=== PATIENT | male | born 1990 | race Caucasian/White ===

== ENCOUNTER 2018-12-11 19:03 | Emergency (ER) | payer SELFPAY ==
[~2018-12-11] VITALS: Ht 175.3 cm; Wt 107.3 kg
[2018-12-11 19:09] VITALS: Ht 175.3 cm; Wt 107.3 kg
[2018-12-11] MEDS ORDERED: TORADOL10 MG PO (20:10)
[2018-12-11 20:18] VITALS: BP 122/81
== END 2018-12-11 20:25 | disposition home or self-care (01) ==
LOC: D.ER 19:03
DX: S60.221A Contusion of right hand, initial encounter (principal); W23.0XXA Caught, crushed, jammed, or pinched between moving objects, initial encounter; Y93.89 Activity, other specified; Y92.89 Other specified places as the place of occurrence of the external cause

== ENCOUNTER 2019-01-01 21:11 | Emergency (ER) | payer SELFPAY ==
[~2019-01-01] VITALS: Ht 175.3 cm; Wt 106.8 kg
[~2019-01-01 21:11] MED LIST: TORADOL10 MG PO
[2019-01-01 21:36] VITALS: Ht 175.3 cm; Wt 106.8 kg
[2019-01-02] MEDS ORDERED: BUTALB-APAP-CA1 EACH PO (01:58)
[2019-01-02 02:17] VITALS: BP 124/73
== END 2019-01-02 02:17 | disposition home or self-care (01) ==
LOC: D.ER 21:11
DX: R51 Headache (principal)

== ENCOUNTER 2019-01-23 18:50 | Emergency (ER) | payer SELFPAY ==
[~2019-01-23] VITALS: Ht 175.3 cm; Wt 104.5 kg
[~2019-01-23 18:50] MED LIST changes: +BUTALB-APAP-CA1 EACH PO
[2019-01-23 18:58] VITALS: Ht 175.3 cm; Wt 104.5 kg
[2019-01-23] MEDS ORDERED: VISTARIL25 MG PO (19:55)
[2019-01-23] MEDS ORDERED: ZPAK PO (19:56)
[2019-01-23 20:54] VITALS: BP 131/89
== END 2019-01-23 20:54 | disposition home or self-care (01) ==
LOC: D.ER 18:50
DX: F41.0 Panic disorder [episodic paroxysmal anxiety] (principal); J02.9 Acute pharyngitis, unspecified

== ENCOUNTER 2019-03-14 18:41 | Emergency (ER) | payer MEDICAID ==
[~2019-03-14] VITALS: Ht 175.3 cm; Wt 104.5 kg
[~2019-03-14 18:41] MED LIST changes: +VISTARIL25 MG PO; +ZPAK PO
[2019-03-14 18:43] VITALS: Ht 175.3 cm; Wt 104.5 kg
[2019-03-14] MEDS ORDERED: VISTARIL25 MG PO (20:23)
[2019-03-14 21:08] VITALS: BP 119/77
== END 2019-03-14 21:08 | disposition home or self-care (01) ==
LOC: D.ER 18:41
DX: F41.9 Anxiety disorder, unspecified (principal)

== ENCOUNTER 2019-11-10 14:35 | Emergency (ER) | payer SELFPAY ==
[~2019-11-10] VITALS: Ht 175.3 cm; Wt 100.0 kg
[2019-11-10 14:47] VITALS: Ht 175.3 cm; Wt 100.0 kg
[2019-11-10] MEDS ORDERED: OMEPRAZOLE20 M1 PO (14:50)
[2019-11-10] MEDS ORDERED: LISINOPRIL20 MG PO (14:50)
[2019-11-10 15:05] LABS: BASOPHILS 0.2 % (0-2); HEMATOCRIT 43.1 % (42.0-54.0); HEMOGLOBIN 14.5 g/dL (13.5-17.5); IMMATURE GRANULOCYTES 0.2 % (0-5); LYMPHOCYTES 40.2 % (15-50); MCH 31.7 pg (26.0-34.0); MCHC 33.6 g/dL (31.0-37.0); MCV 94.3 fL (80.0-100.0); MEAN PLATELET VOLUME 9.5 fL (7.4-10.4); MONOCYTES 9.2 % (2-11); NEUTROPHILS 49.2 % (40-80); PLATELET COUNT 250 10x3/uL (130-400); RBC 4.57 10x6/uL (4.20-6.10); RDW 13.2 % (11.5-14.5); WBC 5.8 10x3/uL (4.8-10.8)
[2019-11-10 15:17] LABS: APTT 29.7 SECONDS (22.8-39.4); INR 0.99 (0.85-1.17)
[2019-11-10 15:24] LABS: CALC OSMOLALITY 276 mosm/kg (275-300); CALCIUM 8.8 mg/dL (8.5-10.1); CARBON DIOXIDE 28.3 mmol/L (21.0-32.0); CHLORIDE - SERUM 102 mmol/L (98-107); CREATININE - SERUM 0.9 mg/dL (0.6-1.3); GLUCOSE 95 mg/dL (74-106); POTASSIUM - SERUM 3.7 mmol/L (3.5-5.1); SODIUM 138 mmol/L (136-145); UREA NITROGEN 15 mg/dL (7-18); eGFR NON AFRICAN AMERICAN > 90 mL/min (90-120)
[2019-11-10 15:38] LABS: ALBUMIN 4.4 g/dL (3.4-5.0); ALKALINE PHOSPHATASE 64 U/L (30-120); ALT (SGPT) 28 U/L (10-68); BILIRUBIN - TOTAL 0.53 mg/dL (0.2-1.3); CKMB 1.3 U/L (0.0-3.6); CREATINE KINASE 236 UL (21-232); MAGNESIUM - SERUM 1.9 mg/dL (1.8-2.4); PROTEIN - SERUM 7.8 g/dL (6.4-8.2); TROPONIN-I < 0.017 ng/mL (0.000-0.060)
[2019-11-10] MEDS ORDERED: ATIVAN0.5 MG PO (16:05)
[2019-11-10 16:35] VITALS: BP 125/80
== END 2019-11-10 16:35 | disposition home or self-care (01) ==
LOC: D.ER 14:35
PROVIDERS: Emergency Medicine
DX: R07.89 Other chest pain (principal); R06.02 Shortness of breath; I10 Essential (primary) hypertension; K21.9 Gastro-esophageal reflux disease without esophagitis

== ENCOUNTER 2020-04-25 19:28 | Emergency (ER) | payer SELFPAY ==
[~2020-04-25] VITALS: Ht 175.3 cm; Wt 93.2 kg
[~2020-04-25 19:28] MED LIST changes: +ATIVAN0.5 MG PO; +LISINOPRIL20 MG PO; +OMEPRAZOLE20 M1 PO
[2020-04-25 19:56] VITALS: Ht 175.3 cm; Wt 93.2 kg
[2020-04-25 20:56] VITALS: BP 126/60
== END 2020-04-25 20:56 | disposition home or self-care (01) ==
LOC: D.ER 19:28
DX: M25.562 Pain in left knee (principal); I10 Essential (primary) hypertension; K21.9 Gastro-esophageal reflux disease without esophagitis

== ENCOUNTER 2020-05-07 19:22 | Emergency (ER) | payer OTHER ==
[~2020-05-07] VITALS: Ht 175.3 cm; Wt 92.7 kg
[2020-05-07 19:28] VITALS: Ht 175.3 cm; Wt 92.7 kg
[2020-05-07 19:58] LABS: BASOPHILS 0.1 % (0-2); EOSINOPHILS 0.8 % (0-7); HEMATOCRIT 47.7 % (42.0-54.0); IMMATURE GRANULOCYTES 0.1 % (0-5); LYMPHOCYTES 36.3 % (15-50); MCH 31.7 pg (26.0-34.0); MCHC 33.5 g/dL (31.0-37.0); MCV 94.5 fL (80.0-100.0); MEAN PLATELET VOLUME 9.5 fL (7.4-10.4); NEUTROPHILS 53.7 % (40-80); PLATELET COUNT 285 10x3/uL (130-400); RBC 5.05 10x6/uL (4.20-6.10); RDW 13.4 % (11.5-14.5); WBC 8.6 10x3/uL (4.8-10.8)
[2020-05-07 20:09] LABS: APTT 27.8 SECONDS (22.8-39.4); PROTIME 13.2 SECONDS (11.6-15.0)
[2020-05-07 20:26] LABS: CALC OSMOLALITY 278 mosm/kg (275-300); CALCIUM 9.8 mg/dL (8.5-10.1); CARBON DIOXIDE 25.5 mmol/L (21.0-32.0); CHLORIDE - SERUM 99 mmol/L (98-107); CREATININE - SERUM 0.9 mg/dL (0.6-1.3); GLUCOSE 134 mg/dL (74-106); POTASSIUM - SERUM 3.8 mmol/L (3.5-5.1); SODIUM 138 mmol/L (136-145); UREA NITROGEN 15 mg/dL (7-18); eGFR NON AFRICAN AMERICAN > 90 mL/min (90-120)
[2020-05-07 20:40] LABS: ALBUMIN 4.4 g/dL (3.4-5.0); ALKALINE PHOSPHATASE 65 U/L (30-120); ALT (SGPT) 29 U/L (10-68); CKMB 0.4 U/L (0.0-3.6); CREATINE KINASE 122 UL (21-232); PROTEIN - SERUM 8.4 g/dL (6.4-8.2)
[2020-05-07 20:41] LABS: PRO BNP 8 pg/mL (0-125); TROPONIN-I < 0.017 ng/mL (0.000-0.060)
[2020-05-07] MEDS ORDERED: CARAFATE1 G PO (21:31)
[2020-05-07 22:05] VITALS: BP 130/84
== END 2020-05-07 22:05 | disposition home or self-care (01) ==
LOC: D.ER 19:22
PROVIDERS: Family Medicine
DX: F41.9 Anxiety disorder, unspecified (principal); K21.9 Gastro-esophageal reflux disease without esophagitis; I10 Essential (primary) hypertension; R06.02 Shortness of breath